=== PATIENT | male | born 1970 | race Caucasian/White ===

== ENCOUNTER 2018-09-24 14:46 | Emergency (ER) | payer MEDICAID, OTHER ==
[~2018-09-24] VITALS: Ht 162.6 cm; Wt 101.0 kg
[~2018-09-24 14:46] MED LIST: BUTA1CAP38 PO; HYDR25TA6 PO
[2018-09-24 14:54] VITALS: Ht 162.6 cm; Wt 101.0 kg
[2018-09-24] MEDS ORDERED: SOD CHLORIDE 0.9% 1,000 ML IV STA (15:22)
[2018-09-24] MEDS ORDERED: ONDANSETRON 4 MG INJ IV STA (15:22)
[2018-09-24] MEDS ORDERED: KETOROLAC 30 MG INJ IV STA (15:22)
[2018-09-24 18:12] VITALS: BP 130/81; PULSE 58; RESP 17
--- NOTE | 2018-09-24 18:51 | ERD ---
ER Documentation Chief Complaint Chief Complaint HEADACHE, DIZZINESS, SHAKING HPI 48-year-old male presenting with headache dizziness and shaking. He states he has occasional shortness of breath with some left-sided chest pain it comes and goes. He has some nausea. He has been going on intermittently over the last 2 to 3 weeks with no vomiting. No fevers. Denies chest pain or shortness of breath. Patient had some high blood pressure noted but has not taken medications for a long time is requesting high blood pressure medication at this time. He plans to follow-up with his primary care doctor soon. NKDA. Surgical history appendectomy. Social history denies ROS All systems reviewed and are negative except as per history of present illness. Medications Home Meds Active Scripts Qdxjnbwixl-Uxzpkrjogummc-Pfymivqp* (Fioricet*) 50-300-40 Mg Capsule, 1 CAP PO Q4H PRN for HEADACHE, #30 CAP Prov:ZOHREH PEREA PA-C 09/24/18 Hydrochlorothiazide* (Hydrochlorothiazide*) 25 Mg Tab, 25 MG PO DAILY, #30 TAB Prov:ZOHREH PEREA PA-C 09/24/18 Allergies Allergies: Coded Allergies: No Known Allergy (Unverified , 09/24/18) PMhx/Soc Medical and Surgical Hx: pt denies Medical Hx, pt denies Surgical Hx Hx Alcohol Use: No Hx Substance Use: No Hx Tobacco Use: No FmHx Family History: No diabetes, No coronary disease, No other Physical Exam Vitals Vital Signs Date Temp Pulse Resp B/P (MAP) Pulse Ox O2 O2 Flow FiO2 Time Delivery Rate 09/24/18 98.0 58 17 130/81 98 Room Air 18:12 (97) 09/24/18 97.8 80 17 164/86 98 14:54 (112) Physical Exam GENERAL: The patient is well-appearing, well-nourished, in no acute distress HEENT: Atraumatic. Conjunctivae are pink. Pupils equal, round, and reactive to light. There is no scleral icterus. Tympanic membranes clear bilaterally. Oropharynx clear. NECK: C-spine is soft and supple. There is no meningismus. There is no cervical lymphadenopathy. CHEST: Clear to auscultation bilaterally. There are no rales, wheezes or rhonchi. HEART: Regular rate and rhythm. No murmurs, clicks, rubs or gallops. Result Diagram: 09/24/18 1535 09/24/18 1535 Results 24 hrs Laboratory Tests Test 09/24/18 15:35 White Blood Count 7.9 10^3/ul Red Blood Count 5.07 10^6/ul Hemoglobin 14.3 g/dl Hematocrit 44.4 % Mean Corpuscular Volume 87.6 fl Mean Corpuscular Hemoglobin 28.2 pg Mean Corpuscular Hemoglobin Concent 32.2 g/dl Red Cell Distribution Width 12.9 % Platelet Count 285 10^3/UL Mean Platelet Volume 8.8 fl Immature Granulocytes % 0.500 % Neutrophils % 68.9 % Lymphocytes % 22.7 % Monocytes % 6.1 % Eosinophils % 1.0 % Basophils % 0.8 % Nucleated Red Blood Cells % 0.0 /100WBC Immature Granulocytes # 0.040 10^3/ul Neutrophils # 5.4 10^3/ul Lymphocytes # 1.8 10^3/ul Monocytes # 0.5 10^3/ul Eosinophils # 0.1 10^3/ul Basophils # 0.1 10^3/ul Nucleated Red Blood Cells # 0.0 10^3/ul Sodium Level 139 mmol/L Potassium Level 3.8 mmol/L Chloride Level 102 mmol/L Carbon Dioxide Level 28 mmol/L Anion Gap 9 Blood Urea Nitrogen 18 mg/dl Creatinine 0.80 mg/dl Est Glomerular Filtrat Rate mL/min > 60 mL/min Glucose Level 130 mg/dl Calcium Level 9.4 mg/dl Total Bilirubin 0.4 mg/dl Direct Bilirubin 0.00 mg/dl Indirect Bilirubin 0.4 mg/dl Aspartate Amino Transf (AST/SGOT) 34 IU/L Alanine Aminotransferase (ALT/SGPT) 61 IU/L Alkaline Phosphatase 99 IU/L Total Protein 7.4 g/dl Albumin 4.1 g/dl Globulin 3.30 g/dl Albumin/Globulin Ratio 1.24 Lipase 44 U/L Current Medications Medications Dose Sig/Digna Start Time Status Last (Trade) Ordered Route PRN Stop Time Admin Dose Reason Admin Sodium 1,000 ml @ Q1H STAT 09/24/18 DC 09/24/18 Chloride 1,000 mls/hr IV 15:22 15:41 09/24/18 16:21 Ondansetron 4 mg ONCE STAT 09/24/18 DC 09/24/18 HCl (Zofran IV 15:22 15:41 Inj) 09/24/18 15:23 Ketorolac 30 mg ONCE STAT 09/24/18 DC 09/24/18 Tromethamine IV 15:22 15:41 (Toradol) 09/24/18 15:23 Procedures/MDM EKG: Rate/Rhythm: 73 bpm Normal Sinus Rhythm QRS, ST, T-waves: No changes consistent w/ acute ischemia Impression: No evidence of ischemia or arrhythmia MDM: 48-year-old male presenting with weakness. Patient received fluids in the ER and upon reevaluation patient symptoms dramatically improved. Patient said he felt better. Patient is discharged with strict ER precautions and told to follow-up with primary care within 1 to 2 days for close evaluation. I have low suspicion for cardiac or pulmonary emergency. I have low suspicion for acute abdominal emergency or complication due to electrolyte abnormality. Patient is discharged with strict ER precautions and told to follow-up with primary care. All questions answered at discharge Departure Diagnosis: Primary Impression: Headache Condition: Stable Patient Instructions: Self-Care for Headaches Referrals: [facility] YOU HAVE RECEIVED A MEDICAL SCREENING EXAM AND THE RESULTS INDICATE THAT YOU DO NOT HAVE A CONDITION THAT REQUIRES URGENT TREATMENT IN THE EMERGENCY DEPARTMENT. FURTHER EVALUATION AND TREATMENT OF YOUR CONDITION CAN WAIT UNTIL YOU ARE SEEN IN YOUR DOCTORS OFFICE WITHIN THE NEXT 1-2 DAYS. IT IS YOUR RESPONSIBILITY TO MAKE AN APPOINTMENT FOR FOLOW-UP CARE. IF YOU HAVE A PRIMARY DOCTOR --you should call your primary doctor and schedule an appointment IF YOU DO NOT HAVE A PRIMARY DOCTOR YOU CAN CALL OUR PHYSICIAN REFERRAL HOTLINE AT IF YOU CAN NOT AFFORD TO SEE A PHYSICIAN YOU CAN CHOSE FROM THE FOLLOWING [facility] [address] [facility] [address] [facility] [facility] [address] [facility] [address] [facility] [address] [facility]. [facility]. [address] Additional Instructions: FOLLOW UP WITH YOUR PRIMARY CARE PHYSICIAN TOMORROW.Return to this facility if you are not improving as expected. ZOHREH PEREA PA-C Sep 24, 2018 18:51
== END 2018-09-24 18:13 | disposition home or self-care (01) ==
LOC: FTE 14:46
DX: R51 Headache (principal); R11.0 Nausea
CPT/HCPCS: 80053; 83690; 85025; J1885; J2405; J7030; 36415; 93005; 96361; 96374; 96375